=== PATIENT | female | born 1960 | race Caucasian/White ===

== ENCOUNTER 2021-10-19 18:53 | Emergency (ER) | payer BC ==
[2021-10-19] MEDS ORDERED: Fluorescein Opthalmic Strip EA EYE ONE (18:54)
[2021-10-19] MEDS ORDERED: Tetracaine 0.5% PF 4 ML BOT ONE (19:18)
[2021-10-19] MEDS ORDERED: Boostrix 0.5 ML (Tdap) VIAL ONE (19:30)
== END 2021-10-19 19:49 | disposition home or self-care (01) ==
LOC: BURERS 18:53
DX: S05.01XA Injury of conjunctiva and corneal abrasion without foreign body, right eye, initial encounter (principal); W22.8XXA Striking against or struck by other objects, initial encounter
CPT/HCPCS: 90471; 90715